=== PATIENT | female | born 1945 | race Caucasian/White ===

== ENCOUNTER 2023-12-23 10:00 | Emergency (ER) | payer MEDICARE, MEDICAID ==
[~2023-12-23] VITALS: Ht 152.4 cm; Wt 74.0 kg
[2023-12-23 10:16] VITALS: O2SAT 97
[2023-12-23] MEDS: BACITRACIN ZINC OINT UDPKT TOP ONE (11:08)
[2023-12-23] MEDS: TETANUS, DIPHTHERIA, PERTUSSIS VAC/PF 0.5ML (>10YR OLD) IM ONE (11:08)
[2023-12-23] MEDS: LIDOCAINE HCL/PF 1% 10 MG/ML 5ML VIAL INFIL ONE (11:08)
[2023-12-23] MEDS ORDERED: SULF1TAB48 MT (11:11)
[2023-12-23 11:22] VITALS: BP 188/50; PULSE 64; RESP 18; TEMP 36.66960; O2SAT 96
== END 2023-12-23 11:27 | disposition home or self-care (01) ==
LOC: ER 10:00
DX: S81.811A Laceration without foreign body, right lower leg, initial encounter (principal); E11.9 Type 2 diabetes mellitus without complications; I10 Essential (primary) hypertension; Z88.0 Allergy status to penicillin; W22.8XXA Striking against or struck by other objects, initial encounter; Y93.89 Activity, other specified; Y92.89 Other specified places as the place of occurrence of the external cause; Y99.8 Other external cause status
CPT/HCPCS: 99283; 73590; 90715; 12001; 90471; J3490

== ENCOUNTER 2023-12-30 09:36 | Emergency (ER) | payer MEDICARE, MEDICAID ==
[~2023-12-30] VITALS: Ht 162.6 cm; Wt 78.0 kg
[~2023-12-30 09:36] MED LIST: SULF1TAB48 MT
[2023-12-30 09:50] VITALS: BP 144/57; PULSE 60; RESP 16; TEMP 98.2; O2SAT 99
== END 2023-12-30 10:57 | disposition home or self-care (01) ==
LOC: ER 10:06
DX: S81.811D Laceration without foreign body, right lower leg, subsequent encounter (principal); E11.9 Type 2 diabetes mellitus without complications; I10 Essential (primary) hypertension; E03.9 Hypothyroidism, unspecified; Z88.0 Allergy status to penicillin; X58.XXXD Exposure to other specified factors, subsequent encounter
CPT/HCPCS: 99281